=== PATIENT | female | born 1950 | race Caucasian/White ===

== ENCOUNTER → 2017-05-18 | Outpatient (CLI) | payer MEDICARE, BC ==
[~2017-05-18] MED LIST: ACYC800; CARI350 PO; CYCLOSPORINE 50 MG; ESOM20; KETO10 PO; LEVFLO500 PO; LISI5; OSEL75CA PO; PRED20 PO; PROM25 PO; Prednisone20 MG PO; RXPRED10; SERT50; SULFAMETHOXAZOLE; TRIMETHOPRIM; [UNRECOGNIZED DRUG - OTHER]
== END ==
LOC: LAB SHORT 17:01
DX: L02.415 Cutaneous abscess of right lower limb (principal)
CPT/HCPCS: 87070; 87077; 87147; 87186; 87205

== ENCOUNTER → 2017-12-13 | Outpatient (CLI) | payer MEDICARE, BC | END | disposition home or self-care (01) | LOC: LAB 09:10 → LAB SHORT 09:10 | DX: L08.0 Pyoderma (principal) | CPT/HCPCS: 87070; 87077; 87147; 87186; 87205 ==

== ENCOUNTER → 2019-07-24 | Outpatient (CLI) | payer MEDICARE, BC | END | disposition home or self-care (01) | LOC: LAB SHORT 10:45 → LAB 10:45 | DX: L08.0 Pyoderma (principal) | CPT/HCPCS: 87070; 87077; 87186; 87205 ==

== ENCOUNTER 2019-11-19 09:08 | Day surgery (SDC) | payer MEDICARE, BC ==
[~2019-11-19] VITALS: Ht 157.5 cm; Wt 44.3 kg
[~2019-11-19 09:08] MED LIST changes: +CALCIUM 600-VI1 EAC2 PO; +COMBIVENT RESPIM4 GM; +DULO30 PO; +Flovent 110 MCG12 GM INH; +PRED5 PO; -SERT50; +SERT50 PO; +ZYRTEC10 M2 PO
--- NOTE | 2019-11-19 09:45 | NUR ---
Ambulatory in Day Surgery Surgical site prepped with 2% Chlorhexidine cloth wipe. History, Chart, Medications and Allergies reviewed before start of procedure.Lungs clear T/O to Auscultation. Patient confirms NPO status and agrees with scheduled surgery. Pre-Op teaching done. Pt verbalizes understanding.
--- NOTE | 2019-11-19 13:24 | NUR ---
2ND IV SITE STARTED IN OR WHEN PT UNDER PER PT REQUEST
--- NOTE | 2019-11-19 16:51 | NUR ---
Patient arrived to room 228. Patient tolerating ice chips. Daughter at bedside. Patient states pain at manageable level. Dr. Mcnally at bedside discussing discharge to home this evening. Call light within patient reach.
--- NOTE | 2019-11-19 17:09 | NUR ---
Medicated patient with Toradol for pain. Patient tolerating sips of chicken broth without difficulty.
--- NOTE | 2019-11-19 18:03 | NUR ---
Patient discharged home. Patient to follow up with Dr. Mcnally.
[2019-11-26] MEDS ORDERED: Cipro250 MG PO (14:28)
[2019-11-26] MEDS ORDERED: Flagyl250 MG PO (14:28)
== END 2019-11-19 18:00 | disposition home or self-care (01) ==
LOC: ORSCMMR 09:08 → ORD 10:30 → SURS 16:57 → ORSCMMR 18:00
PROVIDERS: Surgery
PROC: 0DH64UZ Insertion of Feeding Device into Stomach, Percutaneous Endoscopic Approach (ICD-10-PCS; principal; 2019-11-19 10:30)
PROC: 8E0W4CZ Robotic Assisted Procedure of Trunk Region, Percutaneous Endoscopic Approach (ICD-10-PCS; principal; 2019-11-19 10:30)
DX: C15.3 Malignant neoplasm of upper third of esophagus (principal); C85.88 Other specified types of non-Hodgkin lymphoma, lymph nodes of multiple sites; Z87.891 Personal history of nicotine dependence; E78.5 Hyperlipidemia, unspecified; I10 Essential (primary) hypertension; J44.9 Chronic obstructive pulmonary disease, unspecified; J45.909 Unspecified asthma, uncomplicated
CPT/HCPCS: 43659; S2900; J0690; J1885; J2250; J2370; J2405; J2704; J3010; J7120

== ENCOUNTER 2019-12-11 10:38 | Inpatient (IN) | payer MEDICARE, BC ==
[~2019-12-11] VITALS: Wt 42.5 kg
[~2019-12-11 10:38] MED LIST changes: +Cipro250 MG PO; +Flagyl250 MG PO
[2019-12-11 11:39] LABS: BASOPHILS ABSOLUTE AUTO 0.05 K/mm3 (0.00-0.23); BASOPHILS PERCENT AUTO 1 % (0-2); EOSINOPHILS PERCENT AUTO 1 % (0-6); Hematocrit 23.3 % (33.0-51.0); Hemoglobin 7.1 g/dL (11.5-16.0); IMMATURE GRAN ABSOLUTE AUTO 0.16 K/mm3 (0.00-0.10); IMMATURE GRAN PERCENT AUTO 1 % (0-1); LYMPHOCYTES ABSOLUTE AUTO 0.64 K/mm3 (0.84-5.20); LYMPHOCYTES PERCENT AUTO 6 % (21-46); MONOCYTES PERCENT AUTO 8 % (4-13); Mean Corpuscular HGB 25.3 pg (26.0-34.0); Mean Corpuscular HGB Conc 30.5 g/dL (31.5-36.5); Mean Corpuscular Volume 83 fL (80-100); Mean Platelet Volume 11.1 fL (9.1-12.4); NEUTROPHILS ABSOLUTE AUTO 9.23 K/mm3 (1.96-9.15); NEUTROPHILS PERCENT AUTO 83 % (41-73); Platelet Count 537 K/mm3 (150-400); RDW Coefficient Variation 15.4 % (11.7-14.2); RDW Standard Deviation 45.2 fL (35.1-46.3); Red Blood Cell Count 2.81 M/mm3 (3.80-5.20); White Blood Cell Count 11.08 K/mm3 (4.00-11.30)
[2019-12-11 12:01] LABS: Alanine Aminotransfer (ALT/SGP 16 U/L (12-78); Albumin, Blood 2.7 g/dL (3.4-5.0); Albumin/Globulin Ratio 0.6 (0.8-1.8); Alk Phos 106 U/L (50-136); Anion Gap 7 mmol/L (6-16); Aspartate Aminotrans (AST/SGOT 12 U/L (12-37); Bilirubin, Total 0.4 mg/dL (0.1-1.0); Blood Urea Nitrogen 26 mg/dL (8-24); Bun/Creatinine Ratio 44.7 (12.0-20.0); CO2, Blood 27 mmol/L (21-32); Chloride, Blood 102 mmol/L (98-108); Creatinine, Blood 0.58 mg/dL (0.40-1.00); Globulin, Blood 4.3 g/dL (2.2-4.0); Glomerular Filtration Rate >60 (60-); Glucose, Blood 96 mg/dL (70-99); Magnesium, Blood 2.3 mg/dL (1.6-2.4); Phosphorus, Blood 3.5 mg/dL (2.5-4.9); Potassium, Blood 4.4 mmol/L (3.5-5.5); Prealbumin, Blood 10.3 mg/dL (20.0-40.0); Sodium, Blood 136 mmol/L (136-145); Triglycerides 77 mg/dL (30-160)
[2019-12-12 06:50] LABS: Anion Gap 5 mmol/L (6-16); Blood Urea Nitrogen 20 mg/dL (8-24); Bun/Creatinine Ratio 27.4 (12.0-20.0); CO2, Blood 27 mmol/L (21-32); Calcium, Blood 8.8 mg/dL (8.5-10.1); Chloride, Blood 103 mmol/L (98-108); Creatinine, Blood 0.73 mg/dL (0.40-1.00); Glomerular Filtration Rate >60 (60-); Glucose, Blood 103 mg/dL (70-99); Magnesium, Blood 2.2 mg/dL (1.6-2.4); Phosphorus, Blood 3.6 mg/dL (2.5-4.9); Potassium, Blood 3.9 mmol/L (3.5-5.5); Sodium, Blood 135 mmol/L (136-145)
[2019-12-13 04:45] LABS: Anion Gap 6 mmol/L (6-16); Blood Urea Nitrogen 18 mg/dL (8-24); Bun/Creatinine Ratio 29.5 (12.0-20.0); CO2, Blood 26 mmol/L (21-32); Calcium, Blood 9.1 mg/dL (8.5-10.1); Chloride, Blood 106 mmol/L (98-108); Creatinine, Blood 0.61 mg/dL (0.40-1.00); Glomerular Filtration Rate >60 (60-); Glucose, Blood 118 mg/dL (70-99); Magnesium, Blood 2.2 mg/dL (1.6-2.4); Phosphorus, Blood 3.1 mg/dL (2.5-4.9); Potassium, Blood 4.3 mmol/L (3.5-5.5); Sodium, Blood 138 mmol/L (136-145); Triglycerides 66 mg/dL (30-160)
[2019-12-14 06:16] LABS: Anion Gap 8 mmol/L (6-16); Blood Urea Nitrogen 19 mg/dL (8-24); Bun/Creatinine Ratio 31.6 (12.0-20.0); CO2, Blood 24 mmol/L (21-32); Calcium, Blood 9.6 mg/dL (8.5-10.1); Chloride, Blood 106 mmol/L (98-108); Glomerular Filtration Rate >60 (60-); Glucose, Blood 92 mg/dL (70-99); Magnesium, Blood 2.1 mg/dL (1.6-2.4); Phosphorus, Blood 3.3 mg/dL (2.5-4.9); Potassium, Blood 3.9 mmol/L (3.5-5.5); Sodium, Blood 138 mmol/L (136-145)
[2019-12-16 05:48] LABS: Magnesium, Blood 2.2 mg/dL (1.6-2.4); Phosphorus, Blood 3.7 mg/dL (2.5-4.9); Triglycerides 72 mg/dL (30-160)
[2019-12-16 10:35] LABS: Albumin, Blood 2.2 g/dL (3.4-5.0); Albumin/Globulin Ratio 0.5 (0.8-1.8); Bilirubin, Direct 0.2 mg/dL (0.0-0.3); Bilirubin, Indirect 0.1 mg/dL (0.1-0.7); Bilirubin, Total 0.3 mg/dL (0.1-1.0); Globulin, Blood 4.3 g/dL (2.2-4.0); Total Protein, Blood 6.5 g/dL (6.4-8.2)
[2019-12-18 06:48] LABS: Magnesium, Blood 2.2 mg/dL (1.6-2.4); Phosphorus, Blood 3.7 mg/dL (2.5-4.9); Triglycerides 61 mg/dL (30-160)
[2019-12-18] MEDS ORDERED: DIPH25 PO (16:03)
[2019-12-18] MEDS ORDERED: HYDR1TAB94 PT (16:03)
[2019-12-18] MEDS ORDERED: ASPERCREME1 EACH TOP (16:04)
== END 2019-12-18 16:47 | disposition home or self-care (01) | DRG 394 ==
LOC: SURS 10:38
PROVIDERS: Surgery; ADMIT Surgery
DX: K94.22 Gastrostomy infection (principal); E44.0 Moderate protein-calorie malnutrition; I96 Gangrene, not elsewhere classified; Z94.84 Stem cells transplant status; D89.811 Chronic graft-versus-host disease; E78.5 Hyperlipidemia, unspecified; F32.9 Major depressive disorder, single episode, unspecified; F41.9 Anxiety disorder, unspecified; I10 Essential (primary) hypertension; J44.9 Chronic obstructive pulmonary disease, unspecified; L40.9 Psoriasis, unspecified; M81.0 Age-related osteoporosis without current pathological fracture; Z85.01 Personal history of malignant neoplasm of esophagus; Z87.891 Personal history of nicotine dependence
CPT/HCPCS: 36569; 71045; 71046; 74176; 80048; 80053; 80076; 82947; 83735; 84100; 84134; 84478; 85025; 93970; A9270-GY; C1751; C1769; C9113; J0295; J1170; J1200; J1450; J1885; J3010; J3360; J3411; J7050

== ENCOUNTER → 2019-12-20 | Outpatient (CLI) | payer MEDICARE, BC ==
[~2019-12-20] MED LIST changes: +ASPERCREME1 EACH TOP; +ASPERCREME1 EACH TP; +DIPH25 PO; +Deltasone 10 mg10 MG PO; +FENTANYL1 EA10 TOP; +FLOVENT HFA12 GM INH; +HYDACE10B PT; +HYDR1TAB94 PT; +HYDROCODONE-AC1 EAC7 PO; +LIDOCAINE PAIN1 EACH TOP; +MORP20L SL; +ONDA4 PO; +ZANAFLEX4 M1 PO; +ZOLOFT50 MG PO
[2019-12-20 09:28] LABS: BASOPHILS ABSOLUTE AUTO 0.07 K/mm3 (0.00-0.23); BASOPHILS PERCENT AUTO 1 % (0-2); EOSINOPHILS ABSOLUTE AUTO 0.14 K/mm3 (0.00-0.68); EOSINOPHILS PERCENT AUTO 1 % (0-6); Hematocrit 21.2 % (33.0-51.0); Hemoglobin 6.4 g/dL (11.5-16.0); IMMATURE GRAN ABSOLUTE AUTO 0.05 K/mm3 (0.00-0.10); IMMATURE GRAN PERCENT AUTO 1 % (0-1); LYMPHOCYTES ABSOLUTE AUTO 0.66 K/mm3 (0.84-5.20); LYMPHOCYTES PERCENT AUTO 6 % (21-46); MONOCYTES ABSOLUTE AUTO 1.57 K/mm3 (0.16-1.47); MONOCYTES PERCENT AUTO 15 % (4-13); Mean Corpuscular HGB Conc 30.2 g/dL (31.5-36.5); Mean Corpuscular Volume 83 fL (80-100); Mean Platelet Volume 11.9 fL (9.1-12.4); NEUTROPHILS ABSOLUTE AUTO 7.85 K/mm3 (1.96-9.15); NEUTROPHILS PERCENT AUTO 76 % (41-73); Platelet Count 364 K/mm3 (150-400); RDW Coefficient Variation 15.9 % (11.7-14.2); RDW Standard Deviation 45.7 fL (35.1-46.3); Red Blood Cell Count 2.56 M/mm3 (3.80-5.20); White Blood Cell Count 10.34 K/mm3 (4.00-11.30)
[2019-12-20 09:37] LABS: Alanine Aminotransfer (ALT/SGP 23 U/L (12-78); Albumin, Blood 2.4 g/dL (3.4-5.0); Albumin/Globulin Ratio 0.6 (0.8-1.8); Alk Phos 150 U/L (50-136); Anion Gap 9 mmol/L (6-16); Aspartate Aminotrans (AST/SGOT 13 U/L (12-37); Bilirubin, Total 0.3 mg/dL (0.1-1.0); Blood Urea Nitrogen 38 mg/dL (8-24); Bun/Creatinine Ratio 69.5 (12.0-20.0); CO2, Blood 22 mmol/L (21-32); Calcium, Blood 10.8 mg/dL (8.5-10.1); Chloride, Blood 111 mmol/L (98-108); Creatinine, Blood 0.55 mg/dL (0.40-1.00); Globulin, Blood 4.3 g/dL (2.2-4.0); Glomerular Filtration Rate >60 (60-); Glucose, Blood 95 mg/dL (70-99); Potassium, Blood 4.5 mmol/L (3.5-5.5); Sodium, Blood 142 mmol/L (136-145); Total Protein, Blood 6.7 g/dL (6.4-8.2)
[2019-12-20 12:36] LABS: Magnesium, Blood 2.2 mg/dL (1.6-2.4); Phosphorus, Blood 4.2 mg/dL (2.5-4.9); Prealbumin, Blood 8.5 mg/dL (20.0-40.0); Triglycerides 65 mg/dL (30-160)
== END | disposition home or self-care (01) ==
LOC: LAB 08:52 → LAB SHORT 08:52
PROVIDERS: Internal Medicine Hematology & Oncology; Radiology Radiation Oncology
DX: C15.3 Malignant neoplasm of upper third of esophagus (principal); E46 Unspecified protein-calorie malnutrition
CPT/HCPCS: 80053; 83735; 84100; 84134; 84478; 85025

== ENCOUNTER 2019-12-21 11:04 | Day surgery (SDC) | payer MEDICARE, BC ==
[~2019-12-21 11:04] MED LIST changes: -ASPERCREME1 EACH TP; -Deltasone 10 mg10 MG PO; -FENTANYL1 EA10 TOP; -FLOVENT HFA12 GM INH; -HYDACE10B PT; -HYDROCODONE-AC1 EAC7 PO; -LIDOCAINE PAIN1 EACH TOP; -MORP20L SL; -ONDA4 PO; -ZANAFLEX4 M1 PO; -ZOLOFT50 MG PO
[2019-12-21] MEDS ORDERED: PRED5 PO (12:13)
--- NOTE | 2019-12-21 15:07 | NUR ---
PT ARRIVE TO RM 360 APPROX 1200. ALEJANDRO PT SENT UP FOR SHORT STAY TRANSFUSION [address] HAYES w HX ESOPHAGEAL CA, ANEMIA. SHE IS A/O X3, GENERALLY PLEASANT. SHE STATE CHR BACK PAIN, DRAFTER HEATING AND VENTILATING EXPLAIN THAT SHE WILL NEED TO HAVE HOME PAIN MEDS & SELF ADMIN. HER CAREGIVER BRING IN MED, PT CRUSH & ADMIN VIA PEG TUBE. PICC LINE IN PLACE NERE[place], PATENT. 1ST UNIT INFUSING APPROX 1315, VSS.
--- NOTE | 2019-12-21 16:50 | NUR ---
2ND UNIT PRBC INFUSING. NO S/S ADVERSE REACTIONS. VSS. PT TOLERATING WELL. HER DAUGHTER CALL TO CHECK ON PROGRESS, STATE SHE WILL BE AVAIL FOR RIDE HOME. PT NOTIFIED.
--- NOTE | 2019-12-21 18:51 | NUR ---
2ND UNIT PRBC NEARLY COMPLETE. PT TOLERATE WELL. REPORT TO KIERSTEN RN WHO WILL COMPLETE INFUSION.
== END 2019-12-21 18:40 | disposition home or self-care (01) ==
LOC: TRN 11:04 → ATC 11:04 → MEDS 11:05 → ATC 18:40
DX: C15.4 Malignant neoplasm of middle third of esophagus (principal); D63.0 Anemia in neoplastic disease
CPT/HCPCS: 36430; 86850; 86900; 86901; 86923; J7050; P9016

== ENCOUNTER 2019-12-23 00:58 | Day surgery (SDC) | payer MEDICARE, BC ==
[2019-12-23] MEDS ORDERED: HYDACE10B PT (15:20)
[2019-12-24] MEDS ORDERED: FENTANYL1 EA10 TOP (05:45)
[2019-12-24] MEDS ORDERED: HYDROCODONE-AC1 EAC7 PO (05:45)
[2019-12-24] MEDS ORDERED: ASPERCREME1 EACH TP (05:46)
[2019-12-24] MEDS ORDERED: ZANAFLEX4 M1 PO (05:48)
[2019-12-24] MEDS ORDERED: ZOLOFT50 MG PO (05:49)
[2019-12-24] MEDS ORDERED: Deltasone 10 mg10 MG PO (12:41)
[2019-12-24] MEDS ORDERED: FLOVENT HFA12 GM INH (12:41)
== END 2019-12-23 15:33 | disposition home or self-care (01) ==
LOC: ATC 00:58
DX: C15.4 Malignant neoplasm of middle third of esophagus (principal); E46 Unspecified protein-calorie malnutrition
CPT/HCPCS: 96360

== ENCOUNTER 2019-12-24 05:03 | Inpatient (IN) | payer MEDICARE, BC ==
[~2019-12-24] VITALS: Ht 157.5 cm; Wt 43.0 kg
[~2019-12-24 05:03] MED LIST changes: +HYDACE10B PT
[2019-12-24] MEDS ORDERED: FENTANYL1 EA10 TOP (05:45)
[2019-12-24] MEDS ORDERED: HYDROCODONE-AC1 EAC7 PO (05:45)
[2019-12-24] MEDS ORDERED: ASPERCREME1 EACH TP (05:46)
[2019-12-24] MEDS ORDERED: ZANAFLEX4 M1 PO (05:48)
[2019-12-24] MEDS ORDERED: ZOLOFT50 MG PO (05:49)
[2019-12-24 05:54] LABS: BASOPHILS ABSOLUTE AUTO 0.06 K/mm3 (0.00-0.23); BASOPHILS PERCENT AUTO 1 % (0-2); EOSINOPHILS ABSOLUTE AUTO 0.09 K/mm3 (0.00-0.68); EOSINOPHILS PERCENT AUTO 1 % (0-6); Hematocrit 33.2 % (33.0-51.0); Hemoglobin 10.6 g/dL (11.5-16.0); IMMATURE GRAN ABSOLUTE AUTO 0.04 K/mm3 (0.00-0.10); IMMATURE GRAN PERCENT AUTO 0 % (0-1); LYMPHOCYTES PERCENT AUTO 6 % (21-46); MONOCYTES ABSOLUTE AUTO 1.47 K/mm3 (0.16-1.47); MONOCYTES PERCENT AUTO 13 % (4-13); Mean Corpuscular HGB Conc 31.9 g/dL (31.5-36.5); Mean Corpuscular Volume 85 fL (80-100); Mean Platelet Volume 11.4 fL (9.1-12.4); NEUTROPHILS ABSOLUTE AUTO 8.91 K/mm3 (1.96-9.15); NEUTROPHILS PERCENT AUTO 79 % (41-73); Platelet Count 340 K/mm3 (150-400); RDW Coefficient Variation 18.4 % (11.7-14.2); RDW Standard Deviation 54.9 fL (35.1-46.3); Red Blood Cell Count 3.93 M/mm3 (3.80-5.20); White Blood Cell Count 11.27 K/mm3 (4.00-11.30)
[2019-12-24 06:10] LABS: Alanine Aminotransfer (ALT/SGP 17 U/L (12-78); Albumin, Blood 2.7 g/dL (3.4-5.0); Albumin/Globulin Ratio 0.6 (0.8-1.8); Alk Phos 176 U/L (50-136); Anion Gap 9 mmol/L (6-16); Aspartate Aminotrans (AST/SGOT 15 U/L (12-37); Blood Urea Nitrogen 36 mg/dL (8-24); Bun/Creatinine Ratio 63.8 (12.0-20.0); CO2, Blood 22 mmol/L (21-32); Calcium, Blood 10.9 mg/dL (8.5-10.1); Chloride, Blood 103 mmol/L (98-108); Creatinine, Blood 0.56 mg/dL (0.40-1.00); Globulin, Blood 4.6 g/dL (2.2-4.0); Glomerular Filtration Rate >60 (60-); Glucose, Blood 107 mg/dL (70-99); Potassium, Blood 4.4 mmol/L (3.5-5.5); Sodium, Blood 134 mmol/L (136-145); Total Protein, Blood 7.3 g/dL (6.4-8.2)
[2019-12-24] MEDS ORDERED: FLOVENT HFA12 GM INH (12:41)
[2019-12-24] MEDS ORDERED: Deltasone 10 mg10 MG PO (12:41)
--- NOTE | 2019-12-24 18:03 | NUR ---
PT ARRIVED TO THE UNIT THIS AFTERNOON. SHE IS A/O, PLESANT AND COOPERATIVE. SHE SLEPT MOST OF HER TIME HERE. SHE SPOKE WITH DR. DE LA O. THERE WAS SOME DISCUSSION OF PLACING THE PT ON COMFORT CARE. SHE IS RECIEVING TPN. HER DAUGHTER IS AT BEDSIDE.
--- NOTE | 2019-12-24 22:24 | NUR ---
PERFORMED DRESSING CHANGE AROUND G-TUBE TO LT ABD. GAUZE WAS SATURATED WITH YELLOW DRAINAGE. CLEANSED AREA WITH STERILE WATER, APPLIED CALCIUM ALGINATE PER PREVIOUS DSG IN PLACE, COVERED WITH GAUZE/ABD PAD, AND SECURED WITH ADHESIVE TAPE. PT. TOLERATED WELL. WILL CONT TO MONITOR.
[2019-12-25 05:24] LABS: BASOPHILS ABSOLUTE AUTO 0.06 K/mm3 (0.00-0.23); BASOPHILS PERCENT AUTO 1 % (0-2); EOSINOPHILS ABSOLUTE AUTO 0.19 K/mm3 (0.00-0.68); EOSINOPHILS PERCENT AUTO 2 % (0-6); Hematocrit 32.4 % (33.0-51.0); Hemoglobin 10.4 g/dL (11.5-16.0); IMMATURE GRAN ABSOLUTE AUTO 0.04 K/mm3 (0.00-0.10); IMMATURE GRAN PERCENT AUTO 0 % (0-1); LYMPHOCYTES ABSOLUTE AUTO 0.85 K/mm3 (0.84-5.20); LYMPHOCYTES PERCENT AUTO 9 % (21-46); MONOCYTES ABSOLUTE AUTO 1.49 K/mm3 (0.16-1.47); MONOCYTES PERCENT AUTO 17 % (4-13); Mean Corpuscular HGB 27.2 pg (26.0-34.0); Mean Corpuscular HGB Conc 32.1 g/dL (31.5-36.5); Mean Corpuscular Volume 85 fL (80-100); Mean Platelet Volume 11.4 fL (9.1-12.4); NEUTROPHILS ABSOLUTE AUTO 6.37 K/mm3 (1.96-9.15); NEUTROPHILS PERCENT AUTO 71 % (41-73); Platelet Count 336 K/mm3 (150-400); RDW Coefficient Variation 18.8 % (11.7-14.2); RDW Standard Deviation 56.4 fL (35.1-46.3); Red Blood Cell Count 3.82 M/mm3 (3.80-5.20)
[2019-12-25 05:50] LABS: Alanine Aminotransfer (ALT/SGP 16 U/L (12-78); Albumin, Blood 2.5 g/dL (3.4-5.0); Albumin/Globulin Ratio 0.6 (0.8-1.8); Alk Phos 158 U/L (50-136); Anion Gap 5 mmol/L (6-16); Aspartate Aminotrans (AST/SGOT 7 U/L (12-37); Bilirubin, Total 0.7 mg/dL (0.1-1.0); Blood Urea Nitrogen 24 mg/dL (8-24); Bun/Creatinine Ratio 46.2 (12.0-20.0); CO2, Blood 27 mmol/L (21-32); Calcium, Blood 10.3 mg/dL (8.5-10.1); Chloride, Blood 102 mmol/L (98-108); Creatinine, Blood 0.52 mg/dL (0.40-1.00); Globulin, Blood 4.4 g/dL (2.2-4.0); Glomerular Filtration Rate >60 (60-); Glucose, Blood 123 mg/dL (70-99); Magnesium, Blood 2.3 mg/dL (1.6-2.4); Phosphorus, Blood 3.1 mg/dL (2.5-4.9); Potassium, Blood 4.2 mmol/L (3.5-5.5); Sodium, Blood 134 mmol/L (136-145); Total Protein, Blood 6.9 g/dL (6.4-8.2); Triglycerides 92 mg/dL (30-160)
--- NOTE | 2019-12-25 05:59 | NUR ---
SHIFT SUMMARY- PT. A&O,4, PLEASANT AND COOPERATIVE WITH CARE. PAINFUL T/O THE SHIFT. RECEIVED MINIMAL AMOUNT OF SLEEP DUE TO DISCOMFORT. MEDICATED PER EMAR WITH MINIMAL EFFECT. G-TUBE TO LT ABD DRAINING MODERATE AMOUNT OF YELLOW THICK MUCOUSY DRAINAGE. DRESSING CHANGE DONE 2X THIS SHIFT. PT. TOLERATED WELL. VSS. PT. RESTING QUIETLY IN BED, NO APPARENT DISTRESS NOTED. CALL LIGHT WITHIN REACH AND SIDE RAILS UPX2. WILL CONT TO MONITOR.
--- NOTE | 2019-12-25 13:07 | NUR ---
Palliative Care Consult for Cancer, End of Life/Comfort Care. Pt admitted to hospital for Intractable Pain. 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 Pt resting in bed and is A&O. Pt reports tolerable pain 3/10 in her abdomen and coccyx. Engaged in therapeutic listening as Pt discusses concerns. Listened as Pt expreses regret of not being able to spend time with her grandchildren. Pt reports her son has not been a part of her life is sometime. She does report sons plan to bring the children to see her. Pt tearful at times and this RN offered emotional support. Listened as Pt reports not wanting further cancer treatment and having a discussion with Dr Kelly. Discussed hospice as an option and educated on hospice philosophy. Pt states being unsure of stopping TPN to go onto hospice services. Validated concerns and answered questions. Pt reports needing more time to consider options and will speak to family further. Pt expresses appreciation of visit. Spoke with Dr Hoang and discussed case. When Pt is ready for discharge, Pt can D/C with home health and when ready to D/C TPN Pt can transition to hospice. Palliative Care will remain available for supportive and therapeutic visits.
--- NOTE | 2019-12-25 17:06 | NUR ---
SHIFT SUMMARY PT IS AOX4, ON ROOM AIR. PT IS 1P STANDY ASSIST TO COMMODE. PT HAD PALLIATIVE CONSULT TODAY; PT AWAITS FOR POSSIBLY HOSPICE DISCHARGE; PT ALSO CONSIDERING HOME HEALTH. DR. MANCINI SEEN THE PT; AND TOOK OUT THE G TUBE PER PT REQUEST. PT IS VERY PAINFUL TODAY; MEDICATED WITH ROXANAL PER DR ORDER PRN. PT C/O BODY ITCH; BENADRYL IV ADMINISTERED PER DR ORDER. TPN @75MLS/HR. PT DENIES SOB.CP. NAUSEA AND VOMITING. BED IS IN THE LOWEST POSITION; CALL LIGHTS WITHIN REACH AND WILL CONT MONITOR
--- NOTE | 2019-12-25 17:13 | NUR ---
Spiritual care inital note: Leslie was talkative and open about her illness. She expressed some remorse, but told me that, overall, she is at peace. She became tearful throughout conversation and responded well to emotional affirmation and gentle addiction counselor. We prayed together for a painless, peaceful transition. Leslie expressed appreciaition for visit. I will continue to see Leslie as case-load permits.
[2019-12-26] MEDS ORDERED: LIDOCAINE PAIN1 EACH TOP (05:20)
[2019-12-26 05:46] LABS: Magnesium, Blood 2.3 mg/dL (1.6-2.4); Phosphorus, Blood 2.9 mg/dL (2.5-4.9)
--- NOTE | 2019-12-26 05:54 | NUR ---
SHIFT SUMMARY PT IS A 69 Y/O FEMALE, ADMITTED FOR MALNUTRITION. SHE IS A&O X 4, 1PA TO [facility]. PT C/O PAIN THROUGH THE NIGHT, AND WAS MEDICATED 4X WITH PRN ROXANOL. PT ALSO HAD EPISODES OF ANXIETY AND CRYING R/T HER CONDITION AND PAIN, AND COMFORT AND SUPPORT WAS OFFERED. NO COMPLAINTS OF NAUSEA OR SOB. VITAL SIGNS STABLE. NO OTHER ACUTE CHANGES IN PT CONDITION NOTED DURING THE NIGHT. WILL CONTINUE TO MONITOR AND TREAT PER EMAR UNTIL HAND OFF TO DAY SHIFT RN.
--- NOTE | 2019-12-26 12:41 | NUR ---
Multiple visits with Pt and family today. Provided support and answered questions. Pt reporting pain with each visit. During last visit Pt reporting pain has decreased to 6/10. This RN present during Dr Mcnally's visit. Dr Mcnally has discussion regarding goals of care. Dr Mcnally provides options and educates on each option. Daughter Katina at bedside during conversation. After lengthy discussion with Dr Mcnally Pt has come to the decision to discontinue TPM, not to pursue another Gtube placement and wants to go home with hospice. Offered therapeutic listening and discussed further after Dr Mcnally's visit. Present during Dr Hoang's visit as well. Dr Hoang confirms Pt's wishes and is in agreement with decision for hospice. Pt is requesting to go home today. Dr Hoang will place discharge orders with hospice. Spoke with Caremanager Ronquillo and [facility] Negrete. Relayed Pt wishes for hospice. Palliative Care will remain available.
--- NOTE | 2019-12-26 13:01 | NUR ---
Met. Pt getting ready to go home offerd prayers and encouraged her in her selene.
[2019-12-26] MEDS ORDERED: MORP20L SL (13:23)
[2019-12-26] MEDS ORDERED: ONDA4 PO (13:24)
--- NOTE | 2019-12-26 13:52 | NUR ---
PICC LINE REMOVED PT GOING HOME WITH HOSPICE FOLLOWING. 35CM TOTAL LENGTH OF PICC CATHETER.
--- NOTE | 2019-12-26 14:17 | NUR ---
PT DISCHARGED HOME ON HOSPICE, DAUGHTER AT THE BEDSIDE. PICC DC'D BY EMAIL MANAGER. DISCHARGED MEDICATIONS AND INSTRUCTIONS; EXPLAINED TO PT; PT STATED UNDERSTANDING. HOSPICE INTAKE WILL MEET PT AT HOME TOMORROW. HARD COPY PRESCRIPTIONS PROVIDED TO PT. PT TRANSFERRED TO PRIVATE VEHICLE VIA WHEELCHAIR.
--- NOTE | 2019-12-26 16:46 | NUR ---
Spiritual care note: Met with Leslie and her dtr, Katina. We spoke of things left undone and made a plan to complete them before Leslie passes. Gentle industrial relations counselor was well recieved. Prayer for a peaceful transition provided. Both pt and dtr tearful but appropriate. Leslie was discharged with hospice shortly after visit.
== END 2019-12-26 14:00 | disposition hospice, home (50) | DRG 394 ==
LOC: ER 05:03 → MEDS 12:29
PROVIDERS: Student in an Organized Health Care Education/Training Program; ADMIT Family Medicine
DX: K94.22 Gastrostomy infection (principal); C15.9 Malignant neoplasm of esophagus, unspecified; E44.0 Moderate protein-calorie malnutrition; D89.811 Chronic graft-versus-host disease; Z94.81 Bone marrow transplant status; G89.3 Neoplasm related pain (acute) (chronic); M54.89 Other dorsalgia; Z51.5 Encounter for palliative care; K59.03 Drug induced constipation; T40.2X5A Adverse effect of other opioids, initial encounter; E78.5 Hyperlipidemia, unspecified; F32.9 Major depressive disorder, single episode, unspecified; L40.9 Psoriasis, unspecified
CPT/HCPCS: 80053; 82947; 83605; 83690; 83735; 84100; 84478; 85025; 96361; 96374; 96375; 96376; 99285-25; J1170; J1200; J1650; J3010; J3411; J7120